=== PATIENT | male | born 1950 | race Two or more races ===

== ENCOUNTER 2021-12-09 15:57 | Emergency (ER) | payer MEDICAID ==
[~2021-12-09] VITALS: Ht 170.2 cm; Wt 91.0 kg
[2021-12-09 16:15] VITALS: BP 143/86
[2021-12-10] MEDS: ACETAMINOPHEN 500MG TABLET PO ONE (00:07)
[2021-12-10 00:13] LABS: BASOPHILS % 0.9 % (0.0-2.0); EOSINOPHILS % 2.7 % (0.0-5.0); HEMATOCRIT. 43.5 % (42.0-52.0); HEMOGLOBIN. 15.2 g/dL (14.0-18.0); LYMPHOCYTES % 35.8 % (20.0-50.0); MEAN CORPUSCULAR HEMOGLOBIN 30.9 pg (28.0-32.0); MEAN CORPUSCULAR VOLUME 88.3 fL (80.0-94.0); MEAN PLATELET VOLUME 9.8 fl (7.4-10.4); MONOCYTES % 9.2 % (2.0-8.0); NEUTROPHILS % 51.4 % (40.0-76.0); PLATELET 168 x1000/uL (130-400); RED BLOOD CELL COUNT 4.93 mill/uL (4.7-6.1); RED CELL DISTRIBUTION WIDTH 13.6 % (11.6-14.6)
[2021-12-10 00:20] LABS: CHLORIDE 103 mEq/L (98-107)
[2021-12-10] MEDS ORDERED: NAPR-1176 MT (00:52)
== END 2021-12-10 01:51 | disposition home or self-care (01) ==
LOC: ER 15:57
DX: R60.9 Edema, unspecified (principal); G62.9 Polyneuropathy, unspecified; I10 Essential (primary) hypertension
CPT/HCPCS: 36415; 71045; 80053; 83880; 84484; 85025; 93005; 93971; 99285